=== PATIENT | female | born 2000 | race Caucasian/White ===

== ENCOUNTER 2024-01-25 05:28 | Observation (INO) ==
[2024-01-25 05:53] LABS: iSTAT Creatinine 0.6 mg/dl (0.6-1.3); iSTAT Hemoglobin 12.2 g/dl (12.0-16.0); iSTAT Ionized Calcium 1.22 mmol/l (1.12-1.32); iSTAT Potassium 3.6 mmol/L (3.3-5.0)
[2024-01-25] MEDS ORDERED: DOXYCYCLINE HYCLATE IV STA (07:08)
[2024-01-25] MEDS ORDERED: MINI B IV STA (07:08)
[2024-01-25] MEDS ORDERED: DEXTROSE 5% IV STA (07:08)
[2024-01-25] MEDS: LACTATED RINGER'S 1,000 ML IV ONE (07:10)
--- NOTE | 2024-01-25 07:16 | Emergency Department Note ---
Impression & Plan Spontaneous miscarriage To the OR with Dr. Perez ED Provider Note NAME: JOSEMANUEL PATRICIA AGE: 23 SEX: Female INFORMANT: Patient ED PROVIDER(S): Mckenzie Robins DO CHIEF COMPLAINT: Heavy vaginal bleeding PLAN: Disposition: To the OR with Dr. Perez MEDICAL DECISION MAKING: This is a 23-year-old female patient G1, P0 who presents to the emergency department with heavy vaginal bleeding. Patient is approximately 16 weeks and awoke from sleep in a pool of blood. She has had no care. She had a quick look ultrasound yesterday which showed an intrauterine gestational sac that was empty. Last evening she developed crampy abdominal pain and awoke with vaginal bleeding. EMS brought the patient to the emergency department. H&H were stable. Vitals were stable. On physical exam, patient was passing very large clots with clots noted in the cervix. On speculum exam, I removed multiple clots from the vaginal canal and once I could visualize the cervix there was bright red blood pumping from the cervical os. I contacted Dr. Perez immediately to make her aware of the situation and she requested the result of the quantitative hCG and a stat ultrasound. The quantitative hCG was 6902. The patient's blood type is A negative. I recontacted her once the ultrasound was complete. The patient's blood pressure and heart rate remained stable. She came to the room to evaluate the patient and will take her to the OR. Care/management discussed with: Dr. Perez Triage Nursing notes: reviewed and agree with them. Vital Signs: reviewed and unremarkable Additional History obtained from: EMS Differential Diagnosis: Spontaneous miscarriage, ectopic , blighted ovum Diagnostics, independently interpreted by me: Cardiac Monitoring: Normal sinus rhythm at 62 Imaging studies: ultrasound: As per radiology HPI: 23 year old Female arrives for evaluation of heavy vaginal bleeding. Patient awoke from sleep with heavy vaginal bleeding. Patient believes she is approximately 16 weeks with her last menstrual period starting the last week of September. This is her first . The patient underwent an ultrasound yesterday that [facility] where they did an ultrasound and explained to her that she had a gestational sac that was empty. PAST MEDICAL HISTORY: None, PAST SURGICAL HISTORY: None, SOCIAL HISTORY: Lives with her , HOME MEDICATIONS: None ALLERGIES: None VITALS: See Below PHYSICAL EXAMINATION: HEENT: Head - normocephalic and atraumatic. Pupils are equal, round, and reactive to light. Extraocular eye muscles are intact, and sclera are anicteric. Nose - moist nasal mucosa without discharge. Mouth - moist buccal mucosa. Oropharynx is nonerythematous and there is no tonsillar exudate or edema noted. Neck: Supple; no cervical lymphadenopathy or thyromegaly Heart: Regular rate and rhythm. There is a normal S1 and S2 with no murmurs, clicks, or gallops appreciated. Lungs: Clear to auscultation bilaterally with no wheezes, rales, or rhonchi. Abdomen: Soft, moderate tenderness to palpation with moderate distention with good bowel sounds. There are no palpable pulsatile masses or hepatosplenomegaly. Extremities: No evidence of cyanosis, clubbing, or edema. There are easily palpable peripheral pulses. Skin: warm and dry with good turgor and no rashes. Pelvic: There was blood coming from the vagina along with clots. On speculum exam, there was blood pooling in the vaginal canal. Once I removed the clots and soaked up the blood with 4 x 4's, I could visualize the cervix which had clot within the os. Once that pushed out, there was a large amount of blood running from the cervical os. Emergency department course: Upon EMS arrival, the patient was immediately evaluated by nursing staff and myself. An order was placed for continuous cardiac monitoring. Patient was in a normal sinus rhythm at a rate of 62. Laboratory studies were drawn as above. An i-STAT was performed and the patient's H&H was stable. Blood bank was there to perform type and screen. I performed a quick physical exam and the patient was placed into a pelvic bed so I could perform a pelvic exam on the patient. This is described above. I contacted the open developer operator on-call. The patient went for ultrasound. Upon returning to the ER, she was evaluated by Dr. 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 Beliefs That Will Affect Care: Mormon Mormon Beliefs: Ciaran Current Living Situation: Spouse Other Information That Helps Us Care for You: No Feels Safe at Home: Yes Safety Concerns: Feels Safe At This Time Assistive Devices: None Allergies Allergies Allergy/AdvReac Type Severity Reaction Status Date / Time No Known Allergies Allergy Verified 01/25/24 10:24 Results & Data (ED) Vital Signs Vital Signs - 24 hr 01/25/24 05:35 01/25/24 05:37 01/25/24 06:30 Temperature 36.8 C Temperature Source Oral Pulse Rate 71 60 84 Pulse Rate [Apical] Pulse Rhythm Regular Pulse Rhythm [Apical] Pulse Strength Normal Respiratory Rate 20 18 Respiratory Effort / Characteristics Non-Labored Spontaneous Respiratory Depth Normal Respiratory Pattern Regular Blood Pressure 141/79 H 122/87 Blood Pressure [Right Arm] Blood Pressure Mean 99 98 Blood Pressure Mean [Right Arm] Blood Pressure Position Semi-fowlers Blood Pressure Position [Right Arm] Pulse Oximetry 98 100 Oxygen Delivery Method Room Air Room Air Oxygen Flow Rate Sepsis Recent Fever Within 48 Hours No Sepsis New/Unexplained Change in Mental Status N/A Sepsis Action Taken by Nursing No Action Required 01/25/24 07:00 01/25/24 08:53 01/25/24 09:00 Temperature 36.0 C L Temperature Source Temporal Artery Scan Pulse Rate 85 Pulse Rate [Apical] 134 H 92 H Pulse Rhythm Pulse Rhythm [Apical] Regular Regular Pulse Strength Respiratory Rate 17 12 15 Respiratory Effort / Characteristics Non-Labored Spontaneous Non-Labored Spontaneous Respiratory Depth Normal Normal Respiratory Pattern Regular Regular Blood Pressure 128/75 Blood Pressure [Right Arm] 91/51 L 86/43 L Blood Pressure Mean 92 Blood Pressure Mean [Right Arm] 64 57 Blood Pressure Position Blood Pressure Position [Right Arm] Lying Lying Pulse Oximetry 100 100 100 Oxygen Delivery Method Room Air Oxymask Oxymask Oxygen Flow Rate 9 9 Sepsis Recent Fever Within 48 Hours Sepsis New/Unexplained Change in Mental Status Sepsis Action Taken by Nursing 01/25/24 09:10 01/25/24 09:20 01/25/24 09:30 Temperature Temperature Source Pulse Rate Pulse Rate [Apical] 79 74 81 Pulse Rhythm Pulse Rhythm [Apical] Regular Regular Regular Pulse Strength Respiratory Rate 13 16 20 Respiratory Effort / Characteristics Non-Labored Spontaneous Non-Labored Spontaneous Non-Labored Spontaneous Respiratory Depth Normal Normal Normal Respiratory Pattern Regular Regular Regular Blood Pressure Blood Pressure [Right Arm] 90/41 L 97/49 L 100/38 L Blood Pressure Mean Blood Pressure Mean [Right Arm] 57 65 58 Blood Pressure Position Blood Pressure Position [Right Arm] Lying Lying Lying Pulse Oximetry 100 100 100 Oxygen Delivery Method Oxymask Room Air Room Air Oxygen Flow Rate 9 Sepsis Recent Fever Within 48 Hours Sepsis New/Unexplained Change in Mental Status Sepsis Action Taken by Nursing 01/25/24 09:40 01/25/24 09:50 01/25/24 10:00 Temperature Temperature Source Pulse Rate Pulse Rate [Apical] 63 70 86 Pulse Rhythm Pulse Rhythm [Apical] Regular Regular Regular Pulse Strength Respiratory Rate 20 19 13 Respiratory Effort / Characteristics Non-Labored Spontaneous Non-Labored Spontaneous Non-Labored Spontaneous Respiratory Depth Normal Normal Normal Respiratory Pattern Regular Regular Regular Blood Pressure Blood Pressure [Right Arm] 96/60 L 111/65 121/66 Blood Pressure Mean Blood Pressure Mean [Right Arm] 72 80 84 Blood Pressure Position Blood Pressure Position [Right Arm] Lying Lying Lying Pulse Oximetry 100 100 100 Oxygen Delivery Method Room Air Room Air Room Air Oxygen Flow Rate Sepsis Recent Fever Within 48 Hours Sepsis New/Unexplained Change in Mental Status Sepsis Action Taken by Nursing 01/25/24 10:10 01/25/24 10:20 Temperature 36.6 C Temperature Source Temporal Artery Scan Pulse Rate Pulse Rate [Apical] 80 78 Pulse Rhythm Pulse Rhythm [Apical] Regular Regular Pulse Strength Respiratory Rate 13 15 Respiratory Effort / Characteristics Non-Labored Spontaneous Non-Labored Spontaneous Respiratory Depth Normal Normal Respiratory Pattern Regular Regular Blood Pressure Blood Pressure [Right Arm] 134/70 120/65 Blood Pressure Mean Blood Pressure Mean [Right Arm] 91 83 Blood Pressure Position Blood Pressure Position [Right Arm] Lying Lying Pulse Oximetry 100 97 Oxygen Delivery Method Room Air Room Air Oxygen Flow Rate Sepsis Recent Fever Within 48 Hours Sepsis New/Unexplained Change in Mental Status Sepsis Action Taken by Nursing Laboratory Data 01/25/24 12:58 Lab Results 01/25/24 01/25/24 01/25/24 Range/Units 05:36 05:41 05:45 WBC 11.60 H (4.8-10.8) K/ul RBC 4.21 (4.20-5.40) M/uL Hgb 12.3 (12.0-16.0) g/dl POC Hgb 12.2 (12.0-16.0) g/dl Hct 36.7 L (37.0-47.0) % POC Hct 36 L (37-47) % MCV 87.2 (80.0-100.0) fL MCH 29.2 (25.0-34.0) pg MCHC 33.5 (32.0-36.0) g/dL RDW Std Deviation 41.9 (36.4-46.3) fL RDW Coeff of Fredrick 13.3 (11.5-14.5) % Plt Count 212 (130-400) K/uL MPV 10.7 (9.4-12.4) fL POC Sodium 138 (135-144) mmol/L POC Potassium 3.6 (3.3-5.0) mmol/L POC Chloride 104 (101-112) mmol/L POC Total CO2 24 (24-31) mmol/L POC Anion Gap 15.0 L (16-25) mmol/L POC BUN 9 (7-18) mg/dl POC Creatinine 0.6 (0.6-1.3) mg/dl POC Glucose (other) 95 (70-99) mg/dl POC Ioniz Calcium Henry 1.22 (1.12-1.32) mmol/l HCG, Quant 6902 mIU/ml Blood Type A Negative Blood Type Recheck A Negative Antibody Screen NEGATIVE Crossmatch See Detail 01/25/24 Range/Units 09:06 WBC 20.51 H D (4.8-10.8) K/ul RBC 3.55 L (4.20-5.40) M/uL Hgb 10.3 L (12.0-16.0) g/dl POC Hgb (12.0-16.0) g/dl Hct 32.6 L (37.0-47.0) % POC Hct (37-47) % MCV 91.8 D (80.0-100.0) fL MCH 29.0 (25.0-34.0) pg MCHC 31.6 L (32.0-36.0) g/dL RDW Std Deviation 44.3 (36.4-46.3) fL RDW Coeff of Fredrick 13.2 (11.5-14.5) % Plt Count 317 (130-400) K/uL MPV 10.5 (9.4-12.4) fL POC Sodium (135-144) mmol/L POC Potassium (3.3-5.0) mmol/L POC Chloride (101-112) mmol/L POC Total CO2 (24-31) mmol/L POC Anion Gap (16-25) mmol/L POC BUN (7-18) mg/dl POC Creatinine (0.6-1.3) mg/dl POC Glucose (other) (70-99) mg/dl POC Ioniz Calcium Henry (1.12-1.32) mmol/l HCG, Quant mIU/ml Blood Type Blood Type Recheck Antibody Screen Crossmatch Administered Medications Lactated Ringer's (Lr) 1,000 mls @ 200 mls/hr IV .Q5H JOSE Stop: 02/24/24 10:14 Last Admin: 01/25/24 10:40 Dose: 200 mls/hr Documented By: JONNA Discontinued Medications Diphenhydramine HCl (Diphenhydramine Capsule 25 Mg Cap) 25 mg PO NOW ONE Stop: 01/25/24 13:52 Last Admin: 01/25/24 14:01 Dose: Not Given Documented By: JONNA Doxycycline Hyclate (Doxycycline Hyclate 100 Mg Cap) 200 mg PO NOW STA Stop: 01/25/24 07:23 Last Admin: 01/25/24 07:28 Dose: 200 mg Documented By: ELISE Lactated Ringer's (Lr) 1,000 mls @ 999 mls/hr IV .Q1H1M ONE Stop: 01/25/24 08:07 Last Admin: 01/25/24 07:10 Dose: 999 mls/hr Documented By: ELISE Methylergonovine Maleate (Methylergonovine Maleate 0.2 Mg/Ml Amp) 0.2 mg IM ONE ONE Stop: 01/25/24 07:24 Last Admin: 01/25/24 08:32 Dose: 0.2 mg Documented By: DIGNA Co-signed By: RIANA Misoprostol (Misoprostol 200 Mcg Tab) 800 mcg AK NOW ONE Stop: 01/25/24 07:23 Last Admin: 01/25/24 08:35 Dose: 800 mcg Documented By: [id number] Imaging Data Radiologist's Impression: Ultrasound 01/25/24 06:03 Exam(s): US OB 1st TRIMESTER EXAM: US First Trimester , Transabdominal CLINICAL HISTORY: Reason for exam: eval for miscarriage. TECHNIQUE: Real-time transabdominal obstetrical ultrasound of the maternal pelvis and a first trimester with image documentation. COMPARISON: No relevant prior studies available. FINDINGS: Gestation: Irregular cystic structure within the endometrium which would correspond to a gestational age of 7 weeks 3 days. No intrauterine gestation seen. Placenta/amniotic fluid: Cannot be adequately evaluated due to the early gestational age. Uterus/cervix: There is heterogeneous mass demonstrated within the cervix region 8.6 x 6.4 x 0.1 cm in dimension, limited in assessment. The endometrium is thickened. Ovaries: Right ovary reveals blood flow, left ovary was not seen. No significant free pelvic fluid. Free fluid: No free fluid. IMPRESSION: No viable intrauterine gestation on this exam, presumed failed heterogeneous cystic area within the cervical region incompletely assessed on this exam. Additionally limited as the left ovary is not visualized Electronically signed by: Clement Weller MD 01/25/24 07:16 AM Discharge Plan Visit Data Chief Complaint: Vaginal Bleeding Stated Complaint: VAGINAL BLEEDING ED Provider: Mckenzie Robins Discharge Problem: Spontaneous miscarriage Patient Disposition: Home - Self-Care Discharge Instructions Interventions: ED Discharge Assessment Last Done: 01/25/24 07:43
--- NOTE | 2024-01-25 07:24 | History & Physical Report ---
Date of Service January 25, 2024 Assessment & Plan (1) Missed : Plan: 23 yo G1 presents actively miscarrying and with large hemorrhage VSS Indications, risks, benefits, alternatives to the procedure were reviewed. Reviewed risks associated with surgical management including infection, bleeding, injury to adjacent structures including uterine perforation requiring additional laparoscopy/laparotomy, asherman syndrome, VTE risk, anesthesia risk, infection exposure. Consents were reviewed in depth and signed after all questions answered. Will plan for 200mg PO doxycycline 1hr prior to procedure for antibx ppx and SCDs for VTE prophylaxis. Consent signed. Requested T&C, IVF. Anesthesia made aware History of Present Illness Chief Complaint: VB, miscarriage Primary Care Provider: NO PCP 23 yo G1 w/ LMP last week of September presents to ER w/ sudden onset large amount of VB. Suspected to be 15-16 wks by LMP however had been on and off spotting since Oct. Started having more bleeding yesterday and [facility] told her there was only a GS and no baby. They are unsure of how big the GS was and didn't bring picture with her. Early this AM woke up bleeding heavily around 3am in bed and called EMS. On arrival, continued to have large clots but pt thinks is slightly better. Hgb 12.2/36, quant was 6902, blood type P. US showed GS measuring 7w3d that appears in lower uterine segment. G1 reports monthly periods denies hx stis Patient History Medical History (Updated 01/25/24 @ 07:33 by Billie Perez MD) No pertinent past medical history Surgical History (Updated 01/25/24 @ 07:32 by Billie Perez MD) No pertinent past surgical history Social History Smoking Status: Never smoker Preferred Language: Solomon Islander Feels Safe at Home: Yes Physical Exam Genitourinary: Large amount of blood clots seen in vagina. Able to clear away and see cervix and active bleeding noted Results & Data Vital Signs (Past 12 Hours) Vital Signs Temp Pulse Resp BP Pulse Ox O2 Del Method 01/25/24 05:37 60 01/25/24 05:35 98.3 F 71 20 141/79 H 98 Room Air Coding Level of Care Code None Diagnoses Missed O02.1
[2024-01-25] MEDS: DOXYCYCLINE HYCLATE 100 MG CAP PO STA (07:28)
[2024-01-25] MEDS ORDERED: ONDANSETRON INJ 2 MG/ML 2 ML VIAL ONE (07:41)
[2024-01-25] MEDS ORDERED: PROPOFOL IV EMULSION 10 MG/ML 20 ML VIAL IV ONE (07:41)
[2024-01-25] MEDS ORDERED: LIDOCAINE 2% 2 ML VIAL/AMP(20MG/ML) INFIL ONE (07:41)
[2024-01-25] MEDS ORDERED: DEXAMETHASONE SOD INJ 4 MG/ML VIAL ONE (07:41)
[2024-01-25] MEDS ORDERED: fentaNYL citrate PF 100 MCG/2 ML VIAL ONE (07:42)
[2024-01-25] MEDS ORDERED: MIDAZOLAM HCL 1 MG/ML 2ML VIAL ONE (07:43)
[2024-01-25] MEDS ORDERED: DROPERIDOL 5 MG/2 ML VIAL IV PRN (07:52)
[2024-01-25] MEDS ORDERED: ATROPINE SULFATE 0.1 MG/ML 10ML SYR IV PRN (07:52)
[2024-01-25] MEDS ORDERED: ePHEDrine sulfate 50 MG/ML AMP IV PRN (07:52)
[2024-01-25] MEDS ORDERED: fentaNYL citrate PF 100 MCG/2 ML VIAL IV PRN (07:52)
--- NOTE | 2024-01-25 07:52 | Anesthesiology Consultation ---
Date of Service January 25, 2024 Assessment & Plan Chart Review Chart Review: Acceptable Risk for Surgery and Patient NOT seen in Pre Admission Testing Consults Requested none History Surgery Operation Date: 01/25/24 07:30 Proposed Procedures p Dilation and Evacuation - Billie Perez MD Height/Weight Height: 5 ft 4 in Weight: 66 kg Medications Active Medications Generic Name Dose Route Start Last Admin Trade Name Freq PRN Reason Stop Dose Admin Lactated Ringer's 1,000 mls @ 999 mls/hr 01/25/24 07:07 01/25/24 07:10 Lr IV 01/25/24 08:07 999 mls/hr .Q1H1M ONE Administration Past Medical History Medical History (Updated 01/25/24 @ 07:33 by Billie Perez MD) No pertinent past medical history Past Surgical History Surgical History (Updated 01/25/24 @ 07:32 by Billie Perez MD) No pertinent past surgical history Social History Smoking Status: Never smoker Physical Exam Vital Signs Last Vital Signs Temp 36.8 C 01/25/24 05:35 Pulse 85 01/25/24 07:00 Resp 17 01/25/24 07:00 BP 128/75 01/25/24 07:00 Pulse Ox 100 01/25/24 07:00 O2 Del Method Room Air 01/25/24 07:00 Testing Laboratory Results HCG, Quant 6902 mIU/ml 01/25/24 05:36 Blood Type A Negative 01/25/24 05:36 Antibody Screen NEGATIVE 01/25/24 05:36 01/25/24 05:41 POC Glucose (other) 95 01/25/24 05:36 HCG, Quant 6902
[2024-01-25] MEDS ORDERED: Patient's ALLERGY Info needs ENTERED STA (07:59)
[2024-01-25] MEDS: METHYLERGONOVINE MALEATE 0.2 MG/ML AMP IM ONE (08:32)
[2024-01-25] MEDS: miSOPROStoL 200 MCG TAB PR ONE (08:35)
[2024-01-25] MEDS ORDERED: IBUPROFEN 600 MG TAB PO PRN ×2 (08:43→10:11)
[2024-01-25] MEDS ORDERED: oxyCODONE HCL IR 5 MG TAB (IMMEDIATE RELEASE) PO PRN ×2 (08:43)
[2024-01-25] MEDS ORDERED: ACETAMINOPHEN 500 MG TAB PO PRN (08:43)
--- NOTE | 2024-01-25 08:43 | Post Operative Brief Note ---
PG Immediate Post Op with CF Date of Surgery January 25, 2024 Pre & Post Diagnosis Operation Date: 01/25/24 07:30 Pre-Op Diagnosis: Vaginal bleeding, miscarriage Post-Op Diagnosis: Vaginal bleeding, miscarriage I identified the patient and participated in the time-out.: Yes Procedure Operation Date: 01/25/24 07:30 Actual Procedures p Dilation and Evacuation(Not Applicable) - Billie Perez MD Surgeon Billie Perez MD Inside Sales Recruiter None Estimated Blood Loss 150 Findings Consistent with Post-Op Diagnosis Enlarged uterus c/w MAB. Large amount of clot seen. Uterus decreased in size by end of procedure Fluids 1L crystalloid, UOP 200cc by straight cath Specimens Specimen Description: A. Products of conception Anesthesia Type General Complications none Disposition Accompanied Patient To Recovery: Yes Disposition: Recovery Room
--- NOTE | 2024-01-25 08:46 | Operative Report ---
PG Post Operative Report Pre & Post Diagnosis Operation Date: 01/25/24 07:30 Pre-Op Diagnosis: Missed , hemorrhage Post-Op Diagnosis: Missed , hemorrhage I identified the patient and participated in the time-out.: Yes Procedure Operation Date: 01/25/24 07:30 Actual Procedures p Dilation and Evacuation(Not Applicable) - Billie Preez MD Surgeon Billie Perez MD Grocery Clerk None Estimated Blood Loss 150 Findings Consistent with Post-Op Diagnosis Enlarged uterus c/w MAB. Large amount of clot and active bleeding on exam prior to procedure. Uterus decreased in size by end of procedure Fluids 1L crystalloid, UOP 200cc by straight cath Specimens A. Products of conception Drains None Anesthesia Type General Complications none Disposition Accompanied Patient To Recovery: Yes Disposition: Recovery Room Indications 23 yo G1 presented for evaluation due to large hemorrhage in the setting of mab. Was thought to be 16 wks however had been bleeding intermittently over the last few months. She was found to have 7w GS in lower uterus. Approx 500cc clot evacuated by myself at bedside in ER, more by ER physician before me. Continued active bleeding was noted during exam so recommendation was made to proceed with above procedure Description of Procedure The patient was brought to the operating room suite where informed consent and the patient identity were confirmed. A time out was then performed. Hcg was not indicated given the procedure. IV general anesthesia was obtained without difficulty. She was prepped and draped in a dorsal lithotomy position with all pressure points padded and checked. The bladder was drained via straight catheter. A side open speculum was inserted in the vagina and a tenaculum was placed on the anterior lip of the cervix. The cervix was already dilated to about 2cm. Uterus sounded to 11cm. A 10 mm suction cannula was inserted into the uterine cavity and suction was applied. Multiple passes were performed to obtain tissue. Sharp curettage was then gently performed to curet the uterine cavity with return of tissue. Suction was used again to obtain products. A final pass with suction curette was performed without return of tissue. Curette was performed with good crey noted. Procedure was then terminated. Single-tooth tenaculum was then removed from the cervix, good hemostasis was noted. Uterine size was noted to have decreased. Methergine and cytotec were administered prophylactically. The patient was taken to the recovery room in stable condition. She tolerated the procedure well. All counts were correct x 2 at the conclusion of the procedure. I attest to the content of the Intraoperative Record and any orders documented therein. Any exceptions are noted below. LAUNDRY LABORER Minor Procedure Codes D&E 73764 D&E 1st Tri ([facility])
[2024-01-25 08:52] LABS: Hematocrit (blood only) 36.7 % (37.0-47.0); Hemoglobin 12.3 g/dl (12.0-16.0); Mean Corpuscular Hemoglobin 29.2 pg (25.0-34.0); Mean Corpuscular Hgb Conc 33.5 g/dL (32.0-36.0); Mean Corpuscular Volume 87.2 fL (80.0-100.0); Mean Platelet Volume 10.7 fL (9.4-12.4); Platelet Count 212 K/uL (130-400); RDW Coefficient of Variation 13.3 % (11.5-14.5); RDW Standard Deviation 41.9 fL (36.4-46.3); Red Blood Count 4.21 M/uL (4.20-5.40)
[2024-01-25 09:19] LABS: Hematocrit (blood only) 32.6 % (37.0-47.0); Hemoglobin 10.3 g/dl (12.0-16.0); Mean Corpuscular Hgb Conc 31.6 g/dL (32.0-36.0); Mean Corpuscular Volume 91.8 fL (80.0-100.0); Mean Platelet Volume 10.5 fL (9.4-12.4); Platelet Count 317 K/uL (130-400); RDW Coefficient of Variation 13.2 % (11.5-14.5); RDW Standard Deviation 44.3 fL (36.4-46.3); Red Blood Count 3.55 M/uL (4.20-5.40); White Blood Count 20.51 K/ul (4.8-10.8)
[2024-01-25] MEDS ORDERED: KETAMINE HCL 10MG/ML SYR ONE (09:22)
[2024-01-25] MEDS ORDERED: ONDANSETRON INJ 2 MG/ML 2 ML VIAL IV PRN (10:11)
[2024-01-25] MEDS ORDERED: ACETAMINOPHEN 325 MG TAB PO PRN (10:11)
--- NOTE | 2024-01-25 10:16 | Communication Note ---
Date of Service: January 25, 2024 Was called by post op nurse in the ICU. Noting pressures 90-100/60s. Pulse normal. bleeding moderate. Attempted to sit up in bed in hope of going to the bathroom and the patient was symptomatic. Was given 500cc bolus by anesthesia and increased ivf to 250cc per hour. Started with h/h of 12.3/36.7 at 5:30am, now 10.3/32.6 at 9am. I suspect , given the description of the bleeding and clots by Dr. Perez, that her h/h will drop much lower. Do not feel the patient is ready for d/c at this point. So will admit 23 hour obs. Recheck h/h at 1pm. Offered transfusion now, as I suspect may indeed need one OR monitoring and aggressive ivf hydration. She wishes to hold off on transfusion if at all possible. BP is a bit better now, 120s/60s. Will transfer to the floor and recheck her h/h at 1pm. She expresses understanding for need for further monitoring.
[2024-01-25] MEDS: LACTATED RINGER'S 1,000 ML IV SCH (10:40)
--- NOTE | 2024-01-25 10:50 | Anesthesiology Progress Note ---
Date of Service January 25, 2024 Anesthesia Post Procedure Vital Signs Vital Signs: Temp Pulse Pulse Pulse Resp BP BP 01/25/24 10:36 37 C 98 H 20 127/75 01/25/24 10:20 78 15 120/65 01/25/24 10:10 36.6 C 80 13 134/70 01/25/24 10:00 86 13 121/66 01/25/24 09:50 70 19 111/65 01/25/24 09:40 63 20 96/60 L 01/25/24 09:30 81 20 100/38 L 01/25/24 09:20 74 16 97/49 L 01/25/24 09:10 79 13 90/41 L 01/25/24 09:00 92 H 15 86/43 L 01/25/24 08:53 36.0 C L 134 H 12 91/51 L 01/25/24 07:00 85 17 128/75 01/25/24 06:30 84 18 122/87 01/25/24 05:37 60 01/25/24 05:35 36.8 C 71 20 141/79 H Pulse Ox O2 Del Method O2 Flow Rate 01/25/24 10:36 99 Room Air 01/25/24 10:20 97 Room Air 01/25/24 10:10 100 Room Air 01/25/24 10:00 100 Room Air 01/25/24 09:50 100 Room Air 01/25/24 09:40 100 Room Air 01/25/24 09:30 100 Room Air 01/25/24 09:20 100 Room Air 01/25/24 09:10 100 Oxymask 9 01/25/24 09:00 100 Oxymask 9 01/25/24 08:53 100 Oxymask 9 01/25/24 07:00 100 Room Air 01/25/24 06:30 100 Room Air 01/25/24 05:37 01/25/24 05:35 98 Room Air Pain Intensity Pelvic: Pain Intensity: 5 Transfer of Care Handoff Completed per policy Notes Mental Status: alert / awake / arousable Patient Amnestic to Procedure: Yes Nausea / Vomiting: adequately controlled Pain: adequately controlled Airway Patency, RR, SpO2: stable & adequate BP & HR: see Notes below Hydration State: stable & adequate Anesthetic Complications: no major complications apparent Notes: pt with significant orthostasis when attempting to pope sfer to commode. h/h adequate, bp wnl. treated with ivf bolus and plan to observe as inpt
[2024-01-25 13:30] LABS: Hematocrit (blood only) 23.1 % (37.0-47.0); Hemoglobin 7.8 g/dl (12.0-16.0); Mean Corpuscular Hemoglobin 28.8 pg (25.0-34.0); Mean Corpuscular Hgb Conc 33.8 g/dL (32.0-36.0); Mean Corpuscular Volume 85.2 fL (80.0-100.0); Mean Platelet Volume 10.7 fL (9.4-12.4); Platelet Count 197 K/uL (130-400); RDW Coefficient of Variation 13.2 % (11.5-14.5); Red Blood Count 2.71 M/uL (4.20-5.40); White Blood Count 15.93 K/ul (4.8-10.8)
[2024-01-25] MEDS ORDERED: SODIUM CHLORIDE 0.9% 250 ML IV PRN (13:47)
--- NOTE | 2024-01-25 13:50 | Gynecologic Progress Note ---
Date of Service January 25, 2024 Assessment & Plan (1) Anemia associated with acute blood loss: Plan Patient is really desirous to not stay the night. Her best bet is blood transfusion. r/b/se of transfusion reviewed. She accepts transfusion. Admission and Anticipated Discharge Date Admission Date: January 25, 2024 Subjective Patient notes she is feeling better. Has not voided. Bladder scan of 560cc. Patient was able to sit at the bedside and then get to bedside commode where she voided easily. STood her up to sit her in a chair and she got shaky, lightheaded and dizzy. Her hgb is now 7.8 and likely not sven yet. Discussed r/b/se of transfusion. Not able to leave unless can demonstrate she can ambulate. Physical Exam Constitutional: WD/WN, vitals as above (color improved) Psychiatric: A+Ox3, euthymic affect Results & Data Vital Signs (Past 12 Hours) Vital Signs Temp Pulse Pulse Pulse Pulse Resp BP 01/25/24 12:34 92 H 19 01/25/24 11:31 36.6 C 83 20 01/25/24 10:36 37 C 98 H 20 01/25/24 10:20 78 15 01/25/24 10:10 36.6 C 80 13 01/25/24 10:00 86 13 01/25/24 09:50 70 19 01/25/24 09:40 63 20 01/25/24 09:30 81 20 01/25/24 09:20 74 16 01/25/24 09:10 79 13 01/25/24 09:00 92 H 15 01/25/24 08:53 36.0 C L 134 H 12 01/25/24 07:00 85 17 128/75 01/25/24 06:30 84 18 122/87 01/25/24 05:37 60 01/25/24 05:35 36.8 C 71 20 141/79 H BP Pulse Ox O2 Del Method O2 Flow Rate 01/25/24 12:34 115/65 99 Room Air 01/25/24 11:31 118/63 100 Room Air 01/25/24 10:36 127/75 99 Room Air 01/25/24 10:20 120/65 97 Room Air 01/25/24 10:10 134/70 100 Room Air 01/25/24 10:00 121/66 100 Room Air 01/25/24 09:50 111/65 100 Room Air 01/25/24 09:40 96/60 L 100 Room Air 01/25/24 09:30 100/38 L 100 Room Air 01/25/24 09:20 97/49 L 100 Room Air 01/25/24 09:10 90/41 L 100 Oxymask 9 01/25/24 09:00 86/43 L 100 Oxymask 9 01/25/24 08:53 91/51 L 100 Oxymask 9 01/25/24 07:00 100 Room Air 01/25/24 06:30 100 Room Air 01/25/24 05:37 01/25/24 05:35 98 Room Air PG Care Time/CCT Total # of Minutes Spent Total Time Spent with Patient: Total time spent is greater than 50% in coordination of care (as documented) at patient's floor/unit and/or counseling patient: Coding Level of Care Code None Diagnoses Anemia associated with acute blood loss D62
[2024-01-25 13:52] LABS: Basophils # (auto) 0.03 K/uL (0.00-0.20); Basophils % (auto) 0.2 %; Eosinophils # (auto) 0.01 K/uL (0.00-0.50); Eosinophils % (auto) 0.1 %; Immature Granulocytes # (auto) 0.13 K/uL (0.01-0.20); Immature Granulocytes % (auto) 0.8 %; Lymphocytes # (auto) 0.75 K/uL (1.20-3.40); Lymphocytes % (auto) 4.7 %; Monocytes # (auto) 0.21 K/uL (0.11-0.59); Monocytes % (auto) 1.3 %; Neutrophils % (auto) 92.9 %; RBC Morphology Unremarkable
[2024-01-25] MEDS: diphenhydrAMINE Capsule 25 MG CAP PO ONE (14:01)
--- NOTE | 2024-01-25 20:52 | Communication Note ---
Date of Service: January 25, 2024 Patient is feeling much better after her transfusion of two units. She has great color. Has ambulated in the [facility] x 2 and has voided again. Tolerated a regular diet. Patient desires d/c. INstructions reviewed.
--- NOTE | 2024-01-27 14:49 | Discharge Summary ---
Date of Service January 27, 2024 Admission HPI Per Admitting Provider 23 yo G1 w/ LMP last week of September presents to ER w/ sudden onset large amount of VB. Suspected to be 15-16 wks by LMP however had been on and off spotting since Oct. Started having more bleeding yesterday and went [facility] where they told her there was only a GS and no baby. They are unsure of how big the GS was and didn't bring picture with her. Early this AM woke up bleeding heavily around 3am in bed and called EMS. On arrival, continued to have large clots but pt thinks is slightly better. Hgb 12.2/36, quant was 6902, blood type P. US showed GS measuring 7w3d that appears in lower uterine segment. G1 reports monthly periods denies hx stis Discharge Data Procedures Performed Operation Date: 01/25/24 07:30 Actual Procedures p Dilation and Evacuation(Not Applicable) - Billie Perez MD Hospital Course (1) Missed : (2) Anemia associated with acute blood loss: Plan 23 yo G1 presented for evaluation due to large hemorrhage in the setting of mab. Was thought to be 16 wks however had been bleeding intermittently over the last few months. She was found to have 7w GS in lower uterus. Approx 500cc clot evacuated by myself at bedside in ER, more by ER physician before me. Continued active bleeding was noted during exam so recommendation was made to proceed with above procedure. See operative report for details. Post-op, pt had significant orthostasis and was observed. She continued to feel anemic so was transfused 2 units. She felt much better postop and was discharged home that evening. Coding Level of Care Code None Diagnoses Missed O02.1 Anemia associated with acute blood loss D62
== END 2024-01-25 22:10 | disposition home or self-care (01) ==
LOC: ED 05:28 → 4E2 07:43 → OR 07:43